=== PATIENT | male | born 1950 | race Caucasian/White ===

== ENCOUNTER 2023-04-19 22:03 | Emergency (ER) | payer MEDICARE, BC, SELFPAY ==
[2023-04-19 22:08] VITALS: BP 91/54; PULSE 96; RESP 16; TEMP 36.7; O2SAT 96; BMI 20.9
--- NOTE | 2023-04-19 22:59 | ED.GENADULT ---
HPI - General Adult General Chief complaint: Post Op Complication Stated complaint: bleeding at incision site/chest Time Seen by Provider: 04/19/23 22:57 History of Present Illness HPI narrative: Pt states he had an aortic valve replacement done at [facility] last Monday by Dr. Reddy. Pt had purse string stitches removed with provider at [facility]. Pt states a couple hours after appointment, each incision site started bleeding slowly it will be a drip here and there. Pt states he called [facility] and was instructed to come to local ER to get a stitch or two put in. Pt on Warfarin and baby aspirin. Pt has wrap on chest, placed by . 72-year-old man presenting to the emergency department with concern of bleeding from sutures placed postoperatively for aortic valve replacement. He is anticoagulated with Coumadin and takes aspirin. Call then after they were having trouble with these incisions sites dripping a here in there with blood that they just could not get stopped and recommended to present to their local ER to get a stitch or 2 put in. Has not had any purulent drainage. No new shortness of breath. No fever. No noted swelling Related Data Home Medications Medication Instructions Recorded Confirmed ascorbate calcium (vitamin C) .ROUTE 04/19/23 aspirin 81 mg capsule 81 mg PO DAILY 04/19/23 04/19/23 cholecalciferol (vitamin D3) .ROUTE 04/19/23 esomeprazole magnesium 20 mg 20 mg PO DAILY 04/19/23 04/19/23 capsule,delayed release (Nexium) esomeprazole magnesium 40 mg 40 mg PO DAILY 04/19/23 04/19/23 capsule,delayed release (Nexium) guaifenesin PO 04/19/23 metoprolol succinate 25 mg 12.5 mg PO DAILY 04/19/23 04/19/23 tablet,extended release 24 hr mometasone 220 mcg/actuation(120 1 inh inhalation QPM 04/19/23 04/19/23 doses)breath activated powder inhaler (Asmanex Twisthaler) montelukast 10 mg tablet 10 mg PO DAILY 04/19/23 04/19/23 tadalafil .ROUTE 04/19/23 terazosin 5 mg capsule 5 mg PO QPM 04/19/23 04/19/23 vitamin E (dl, acetate) .ROUTE 04/19/23 warfarin 2 mg tablet PO 04/19/23 Allergies Allergy/AdvReac Type Severity Reaction Status Date / Time fluticasone AdvReac Severe Palpitation Verified 04/19/23 22:22 [From Advair Diskus] s salmeterol AdvReac Severe Palpitation Verified 04/19/23 22:22 [From Advair Diskus] s novacaine AdvReac Unknown Uncoded 04/19/23 22:22 Review of Systems Status of ROS: Reports: 6 or more systems reviewed and unremarkable except as noted in History and below PFSH PFSH Social History Smoking Status: Never smoker Do you use any of these nicotine containing products: None Second hand tobacco smoke exposure: No How often do you have a drink containing alcohol: never AUDIT-C Alcohol total score: 0 Non-prescribed substance use: denies use Exam Narrative: Exam Narrative: Pleasant. NAD. Here with very attentive spouse. Breathing easily. Skin is warm and dry. Has a compression dressing applied to his chest. Removal of this and soaking with normal saline as to not remove any set clot, reveals the wound in question about a cm and half. Looks like there has been a little bleeding and then begins to ooze just a little bit of blood. I do not see any hematoma/swelling around this. No purulent drainage. Expected inflammatory reaction around this. No cellulitic change. Const: Vital Signs, click to edit/add: Vital Signs - 24 hr 04/19/23 22:08 Temperature 98.0 F Pulse Rate [Pulse Oximeter] 96 Respiratory Rate 16 Blood Pressure [Ri ght Upper Arm] 91/54 L Pulse Oximetry 96 Oxygen Delivery Me thod Room Air Documenting provider has reviewed patient's vital signs: yes Course Vital Signs Vital signs: Initial Vital Signs Temperature 98.0 F 04/19/23 22:08 Temperature Source Temporal Artery Scan 04/19/23 22:08 Pulse Rate 96 04/19/23 22:08 Respiratory Rate 16 04/19/23 22:08 Blood Pressure 91/54 L 04/19/23 22:08 Blood Pressure Mean 66 L 04/19/23 22:08 Blood Pressure Position Sitting 04/19/23 22:08 Pulse Oximetry 96 04/19/23 22:08 Oxygen Delivery Method Room Air 04/19/23 22:08 Vital Signs Temperature 98.0 F 04/19/23 22:08 Pulse Rate 96 04/19/23 22:08 Respiratory Rate 16 04/19/23 22:08 Blood Pressure 91/54 L 04/19/23 22:08 Pulse Oximetry 96 04/19/23 22:08 Oxygen Delivery Method Room Air 04/19/23 22:08 Temperature 98.0 F 04/19/23 22:08 Pulse Rate 96 04/19/23 22:08 Respiratory Rate 16 04/19/23 22:08 Blood Pressure 91/54 L 04/19/23 22:08 Pulse Oximetry 96 04/19/23 22:08 Oxygen Delivery Method Room Air 04/19/23 22:08 Medical Decision Making MDM Narrative Medical decision making narrative: We discussed options for care. Including further compression dressing or Steri-Strips. Did inject with lidocaine with epinephrine after discussion of effects/side effects of medication and potential concerns they raised. This did seem to control the bleeding. Cleansed further. After discussion and per their preference, place interrupted Ethilon suture without difficulty. Antibiotic ointment and Band-Aid placed. Discussed wound care. See patient discharge plan Discharge Plan Discharge Clinical Impression: Encounter for wound care, Post-op bleeding Patient Disposition: Home w/ Parent or Adult Condition: Improved Additional Instructions: Clean up initially as needed. Sutures out in about a week. Okay to get wet but avoid soaking while sutures are in. Antibiotic ointment with Band-Aid for a 3 days and then to a dry dressing. Report spreading redness after 2 days, marked increase in pain or swelling, purulent drainage, fever. Prescriptions: No Action terazosin 5 mg capsule 5 mg PO QPM warfarin 2 mg tablet PO montelukast 10 mg tablet 10 mg PO DAILY metoprolol succinate 25 mg tablet extended release 24 hr 12.5 mg PO DAILY Asmanex Twisthaler 220 mcg/ actuation (120) aerosol powdr breath activated 1 inh INHALATION QPM esomeprazole magnesium [Nexium] 40 mg capsule,delayed release(DR/EC) 40 mg PO DAILY esomeprazole magnesium [Nexium] 20 mg capsule,delayed release(DR/EC) 20 mg PO DAILY ascorbate calcium (vitamin C) .ROUTE cholecalciferol (vitamin D3) .ROUTE vitamin E (dl, acetate) .ROUTE aspirin 81 mg capsule 81 mg PO DAILY tadalafil [Cialis] .ROUTE guaifenesin PO Stand Alone Forms: [facility] Info Instructions
--- OUTSIDE RECORDS SUMMARY | 2023-04-19 23:28 | XMS_ITS | Continuity of Care Document ---
Author Name Unknown Organization [facility] Address [address] [address] [place] [address] Phone Care Team Providers Care Property Controller Name Role Phone Pavan Patiño MD Unavailable Unavailable Allergies, Adverse Reactions, Alerts Substance Reaction Status Criticality PROCAINE HCL Active No Information SALMETEROL XINAFOATE heart palpitation Active No Information FLUTICASONE PROPIONATE heart palpitation Active No Information Medications Medication Instructions Dosage Effective Dates (start - stop) Status Comments Singulair 10 mg Tab take 1 tablet (10MG) by oral route every day in the evening 10 MG - Active Asmanex Twisthaler 220 mcg (30 doses) Breath Activated inhale 1 puff (220MCG) by inhalation route every day at nighttime 220 MCG - Active multivitamin Tab take 1 tablet by ORAL route every day 1.00 tablet - Active Celebrex 100 mg Cap as needed - Active Nexium 40 mg Cap take 1 capsule (40MG) by ORAL route 2 times every day 40 MG - Active Procedures Procedure Date Ugi Endo; W/bx 1/mx Level Iv-surg Path Gross/micro 15 Colonoscopy Flex; Dx (sep Pro) 12 Ugi Endo; W/bx 1/mx Level Iv-surg Path Gross/micro 12 Offic/outpt E&m Estab Mod-hi 2 12 G8447 Egan PH Monitor Offic/outpt E&m Estab Mod-hi 2 11 G8447 Esoph Motility Study; Offic/outpt E&m New Mod Sever 1 G8447 Advance Directives Directive Yes / No Effective Date File Name No Information Encounters Encounter Description Practice Location Reason(s) For Visit Diagnoses Date Provider Providers Copied on Encounter [facility], [address] [address], [place], [place], [id number], [place] tel:[phone] [facility] No Information 3 Haroon Browne. [address] [facility], [facility] [address], [place], [id number], [place]. tel:[phone] [facility], [address] [address], [place], [place], [id number], [place] tel:[phone] [facility] Gastroesophage al reflux disease, unspecified whether esophagitis present 3 Makenzie Castillo. [address] [place] [address], [address], [id number], [place]. tel:[phone] [facility], [address] [address], [place], [place], [id number], [place] tel:[phone] [facility] No Information 3 Makenzie Castillo. [address] [place] [address], [address], [id number], [place]. tel:[phone] [facility], [address] [address], [place], [place], [id number], [place] tel:[phone] [facility] GERD; biopsiedReflux EsophagitisGER D 5 Leola Burnett. [address] [place] [address], [address], [id number], [place]. tel:[phone] Referring Provider: Vilma Sinclair, [address], [place], [address]. tel:[phone] [facility], [address] [address], [place], [place], [id number], [place] tel:[phone] [facility] External Referral 4 Aquiles Hernandez. [address], [id number], [place]. [phone] Referring Provider: Vilma Sinclair, [address], [place], [address]. tel:[phone] [facility] [place], [address] [address], [facility], [id number], [place] tel:[phone] [facility] Colon Cancer ScreeningFamil y Hx GI Tract CancerBenign Neoplasm Sm BowelColon Cancer ScreeningBenig n Neoplasm Sm BowelGastroeso phageal RefluxFamily Hx GI Tract Cancer 2 Leola Burnett. [address] [place] [address], [id number], [place]. tel:[phone] Referring Provider: Vilma Sinclair, [address], [place], [address]. tel:[phone] Offic/outpt E&m Estab Mod-hi 2 [facility], [address] [address], [facility] [place], [id number], [place] tel:[phone] [facility] GERD (chief complaint) Gastroesophage al RefluxGastroes ophageal Reflux 2 Joshua Zuniga. [address] [place] [address], [id number], [place]. tel:[phone] Referring Provider: Vilma Sinclair, [address], [place], [address]. tel:[phone] [facility] [place], [address] [address], [facility], [id number], [place] tel:[phone] [facility] No Information 1 Leola Burnett. [address] [place] [address], [id number], [place]. tel:[phone] Referring Provider: Lex Hercules, [address] [facility] [address], [place], [address] . tel:[phone] Offic/outpt E&m Estab Mod-hi 2 [facility], [address] [address], [place] [facility], [id number], [place] tel:[phone] [facility] Reflux symptoms (chief complaint) Chest Pain NosChest Pain NosGastroesoph ageal Reflux 1 No Information Referring Provider: Vilma Sinclair, [address], [place], [address]. tel:[phone] [facility] [place], [address] [address], [place] [facility] [place], [id number], [place] tel:[phone] [facility] No Information 1 Chencho Spaulding. [address] [facility], [address], [place], [place], [id number], [place]. tel:[phone] Offic/outpt E&m New Mod Sever [facility], [address] [address], [place], [id number], [place] tel:[phone] [facility] Abdominal cramping, tightness in esophagus/ ch (chief complaint) Chest Pain NosAbd Pain Generalized 0- 1 No Information Referring Provider: Vilma Sinclair, [address], [place], [address]. tel:[phone] Family History Family Member Type Diagnosis Age At Onset First degree family history Problem (finding) No history of Crohn's First degree family history Problem (finding) Leukemia Father Problem (finding) Hepatitis First degree family history Problem (finding) No history of Ulcerative Colitis First degree family history Problem (finding) Hiatal hernia First degree family history Problem (finding) Possible Colon Cancer Father Problem (finding) Colon polyps First degree family history Problem (finding) No Family history of No history of Colon Polyps Sister Problem (finding) Alive and well Mother Problem (finding) Father Problem (finding) cancer of colon Immunizations Vaccine Date Status Comments influenza, seasonal vaccine, quadrivalent, adjuvanted, 0.5mL dose, preservative free administered Note: [facility] bi-di rectional interface ; Source: Other Registry influenza, seasonal vaccine, quadrivalent, adjuvanted, .5mL dose, preservative free administered Note: [facility] bi-di rectional interface ; Source: Other Registry SARS-COV-2 (COVID-19) vaccin e, mRNA, spike protein, LNP, bivalent booster, preservative free, 30 mcg/0.3 mL dose, clara-sucrose formulation administered Note: [facility] bi-d irectional interface ; Source: Other Registry SARS-COV-2 (COVID-19) vaccin e, mRNA, spike protein, LNP, preservative free, 30 mcg/0.3mL dose, clara-sucrose formulation administered Note: [facility] C bi- directional interface ; Source: Other Registry SARS-COV-2 (COVID-19) vaccin e, mRNA, spike protein, LNP, preservative free, 30 mcg/0.3mL dose, clara-sucrose formulation administered Note: [facility] C bi- directional interface ; Source: Other Registry SARS-COV-2 (COVID-19) vaccin e, mRNA, spike protein, LNP, preservative free, 30 mcg/0.3mL dose administered Note: [facility] bi-direct ional interface ; Source: Other Registry Influenza, injectable, Madin Sidon Canine Kidney, quadrivalent with preservative administered Note: [facility] C bi- directional interface ; Source: Other Registry SARS-COV-2 (COVID-19) vaccin e, mRNA, spike protein, LNP, preservative free, 30 mcg/0.3mL dose administered Note: [facility] bi-direct ional interface ; Source: Other Registry SARS-COV-2 (COVID-19) vaccin e, mRNA, spike protein, LNP, preservative free, 30 mcg/0.3mL dose administered Note: [facility] bi-direct ional interface ; Source: Other Registry Afluria Qd administered Note: [facility] bi-directional interface ; Source: Other Registry influenza, seasonal vaccine, quadrivalent, adjuvanted, 0.5mL dose, preservative free administered Note: [facility] bi-di rectional interface ; Source: Other Registry influenza, seasonal vaccine, quadrivalent, adjuvanted, .5mL dose, preservative free administered Note: [facility] bi-di rectional interface ; Source: Other Registry zoster vaccine recombinant administered N ote: [facility] bi-directional interface ; Source: Other Registry Pneumovax 23 administered Note: [facility] bi-d irectional interface ; Source: Other Registry zoster vaccine recombinant administered N ote: [facility] bi-directional interface ; Source: Other Registry Influenza administered Note: [facility] bi-d irectional interface ; Source: Other Registry Influenza administered Note: [facility] bi-d irectional interface ; Source: Other Registry Afluria Qd administered Note: [facility] bi-directional interface ; Source: Other Registry influenza virus vaccine, unspecified formulation administered Note: [facility] bi-di rectional interface ; Source: Other Registry Prevnar 13 administered Note: [facility] bi-d irectional interface ; Source: Other Registry Afluria Qd administered Note: [facility] bi-directional interface ; Source: Other Registry Twinrix administered Note: [facility] bi-d irectional interface ; Source: Other Registry Afluria Qd administered Note: [facility] bi-directional interface ; Source: Other Registry zoster vaccine, live administered Note: [facility] bi-directional interface ; Source: Other Registry Twinrix administered Note: [facility] bi-d irectional interface ; Source: Other Registry Afluria Qd administered Note: [facility] bi-directional interface ; Source: Other Registry tetanus toxoid, reduced diphtheria toxoid, and acellular pertussis vaccine, adsorbed administered Note: [facility] b i-directional interface ; Source: Other Registry Influenza, seasonal, injectable administe red Note: [facility] bi- directional interface ; Source: Other Registry hepatitis B vaccine, unspeci fied formulation administered Note: [facility] bi-direct ional interface ; Source: Other Registry hepatitis B vaccine, unspeci fied formulation administered Note: [facility] bi-direct ional interface ; Source: Other Registry Payers Payer name Insurance type Covered constitution party ID Authoriza tion(s) No Information Social History Type Description Quantity Date Captured Comments Alcohol Use Details Unknown Caffeine Use Details Unknown Tobacco Use Status No Information Smoking Status No Information Sex Male Chief Complaint And Reason For Visit No Information Reason For Referral Reason For Referral No Information History Of Present Illness Encounter Date Complaint History Of Prese nt Illness No Information Functional Status Date Functional Assessmen t No Information Instructions Date Instruction Additional Infor mation No Information Assessments Type Assessment Date No Information Patient Care Teams Name Effective Dates (start - stop) Status Members No Information
== END 2023-04-19 23:29 | disposition home or self-care (01) ==
LOC: ED 23:24
PROVIDERS: Emergency Provider Family Medicine; PCP Physician Assistant Medical
DX: L76.82 Other postprocedural complications of skin and subcutaneous tissue (principal)
CPT/HCPCS: 99283; 99284